=== PATIENT | female | born 1980 | race Caucasian/White ===

== ENCOUNTER 2017-01-21 12:42 | Emergency (ER) | payer BC | END 2017-01-21 18:49 | disposition home or self-care (01) | LOC: ER 12:42 | DX: M54.2 Cervicalgia (principal); K21.9 Gastro-esophageal reflux disease without esophagitis; H57.03 Miosis; R30.0 Dysuria; I10 Essential (primary) hypertension; G43.909 Migraine, unspecified, not intractable, without status migrainosus; Z98.51 Tubal ligation status; Z98.890 Other specified postprocedural states | CPT/HCPCS: 36415; 96361; 96374; Q9967 ==

== ENCOUNTER 2017-03-30 16:10 | Emergency (ER) | payer BC | END 2017-03-30 17:22 | disposition home or self-care (01) | LOC: ER 16:10 | DX: S61.012A Laceration without foreign body of left thumb without damage to nail, initial encounter (principal); I10 Essential (primary) hypertension; G43.909 Migraine, unspecified, not intractable, without status migrainosus; Z23 Encounter for immunization; Z98.51 Tubal ligation status; Z79.899 Other long term (current) drug therapy; Z88.8 Allergy status to other drugs, medicaments and biological substances; W26.8XXA Contact with other sharp object(s), not elsewhere classified, initial encounter | CPT/HCPCS: 90471 ==